=== PATIENT | male | born 1950 | race Caucasian/White ===

== ENCOUNTER → 2017-03-24 | Outpatient (CLI) | payer MEDICARE, BC | END | disposition home or self-care (01) | LOC: PCVCCLINIC 16:48 | PROVIDERS: ATTEND Internal Medicine Cardiovascular Disease | DX: I10 Essential (primary) hypertension (principal); E78.4 Other hyperlipidemia; I73.9 Peripheral vascular disease, unspecified; F17.200 Nicotine dependence, unspecified, uncomplicated; Z86.79 Personal history of other diseases of the circulatory system; Z85.46 Personal history of malignant neoplasm of prostate; Z79.82 Long term (current) use of aspirin | CPT/HCPCS: 80061; 93005; G0463 ==

== ENCOUNTER → 2017-04-24 | Outpatient (CLI) | payer MEDICARE, BC | END | disposition home or self-care (01) | LOC: PCVCCLINIC 10:56 | PROVIDERS: ATTEND Internal Medicine Cardiovascular Disease | DX: E78.2 Mixed hyperlipidemia (principal) | CPT/HCPCS: 80061 ==

== ENCOUNTER → 2017-04-24 | Outpatient (CLI) | payer MEDICARE, BC ==
[~2017-04-24] MED LIST: REGADENOSON 0.4 MG/5 ML DISP.SYRIN. IV ONE
--- NOTE | 2017-04-24 10:01 | PCVCIMAG ---
EXAM: AORTOILIAC DUPLEX INDICATION: Peripheral arterial disease. FINDINGS: AORTA: Suprarenal aorta measures maximum diameter of 2.9 cm. There is not a fusiform infrarenal aortic aneurysm. The infrarenal aorta measures maximum diameter of 2.5 cm. No aortic stenosis. RIGHT COMMON ILIAC ARTERY: Maximum diameter is 1.0 cm. No significant stenosis. RIGHT EXTERNAL ILIAC ARTERY: No significant stenosis. LEFT COMMON ILIAC ARTERY: Maximum diameter is 1.0 cm. No significant stenosis. LEFT EXTERNAL ILIAC ARTERY: No significant stenosis. IMPRESSION: No abdominal aortic aneurysm. No aortoiliac stenosis seen. Previous bilateral iliac artery stents maintaining satisfactory patency. LOC:[id number]
--- NOTE | 2017-04-27 18:33 | PCVCIMAG ---
APPROVED REPORT Exam: Nuclear Stress Test Indication: Pre-Operative CV evaluation, Dyspnea, Dizziness Patient Location: Out-Patient Stress Nurse: Misti Garcia RN, Carole Pereira RN [place] Tech:Cathy KEVIN [place] Ht: 6 ft 1 in Wt: 200 lbs BSA: 2.15 m2 HR: 73 bpm BP: 112/66 mmHg BMI: 26.3 Rhythm: NSR, First degree AV Block, RBBB Medical History Medical History: Atrial Fibrillation, HTN, Hyperlipidemia, PAD, RBBB, Age, Smoking E-Cig Medications: Aspirin, Flecainide, Ramipril, Spiriva, Atorvastatin Allergies: Celebrex Pretest Chest Pain Characteristics: No chest pain Physical Disabilities: Knees NM EXAM: Myocardial Perfusion REST/STRESS Imaging Protocol: Rest Tc-99m/Stress Tc-99m 1 day Resting Data Rest SPECT myocardial perfusion imaging was performed in supine position 45 minutes following the intravenous injection of 10.8 mCi of Tc-99m Sestamibi. Time of rest injection: 0850 Date: 04/24/2017 Pharmacologic Stress Pharmacologic stress test was performed by injecting Regadenoson 0.4 mg IV push followed by the intravenous injection of 33.5 mCi of Tc-99m Sestamibi. Time of stress injection: 1005 Date: 04/24/2017 Heart Rate at time of stress injection: 74 bpm. Gated Stress SPECT was performed 45 minutes after stress injection. The images were gated to evaluate regional wall motion and calculate left ventricular ejection fraction. Study Quality Study: Good Study Data Post stress, the left ventricular ejection was 68%.. SSS: 4 SRS: 14 SDS: 0 TID = 0.93. Perfusion No evidence of stress induced ischemia or prior myocardial infarction. Wall Motion Normal left ventricular size and function with no regional wall motion abnormalities. Nuclear Conclusion No evidence of stress induced ischemia or prior myocardial infarction. Normal left ventricular size and function with no regional wall motion abnormalities. Post stress, the left ventricular ejection was 68%.. No change since prior study dated May 2015. Interpreted by: Wing Rose MD Electronically Approved: 04/24/2017 13:34:46 Stress Test Details Stress Test: Pharmacologic stress was paired with low level exercise. HR Resting HR: 71 bpmMax Heart Rate (APMHR): 154 bpm Max HR Achieved: 87 bpmTarget HR (85% APMHR): 130 bpm % of APMHR: 56 Recovery HR: 67 bpm BP Resting BP: 112/66 mmHg Max BP: 100/66 mmHg Recovery BP: 118/65 mmHg ECG Resting ECG: Sinus Rhythm, 1st degree AV block Stress ECG: Unchanged Arrhythmia: None Recovery ECG: Sinus Rhythm, normal EKG Recovery ST Change: None Clinical Reason for Termination: Completed protocol Stress Symptoms: Leg Fatigue, resolved during recovery. Exercise duration: 4 min 00 sec Exercise capacity: 1.6 METs Symptoms resolved during recovery. Nurse Comments IV DC'd
== END | disposition home or self-care (01) ==
LOC: PCVCIMAG 08:16
PROVIDERS: ATTEND Internal Medicine Cardiovascular Disease
DX: I73.9 Peripheral vascular disease, unspecified (principal); E78.2 Mixed hyperlipidemia; I10 Essential (primary) hypertension; Z95.5 Presence of coronary angioplasty implant and graft
CPT/HCPCS: 78452; 80061; 93017; 93978; A9500; J2785

== ENCOUNTER → 2017-09-23 | Outpatient (CLI) | payer MEDICARE, BC | END | disposition home or self-care (01) | LOC: PCVCCLINIC 16:09 | PROVIDERS: ATTEND Internal Medicine Cardiovascular Disease | DX: I48.91 Unspecified atrial fibrillation (principal); I10 Essential (primary) hypertension; I73.9 Peripheral vascular disease, unspecified; E78.2 Mixed hyperlipidemia; I51.7 Cardiomegaly; J44.9 Chronic obstructive pulmonary disease, unspecified; F17.210 Nicotine dependence, cigarettes, uncomplicated; R94.31 Abnormal electrocardiogram [ECG] [EKG]; I44.0 Atrioventricular block, first degree; Z79.82 Long term (current) use of aspirin; Z79.899 Other long term (current) drug therapy | CPT/HCPCS: 80061; 93005; G0463 ==

== ENCOUNTER → 2018-07-30 | Outpatient (CLI) | payer MEDICARE, BC ==
--- NOTE | 2018-07-30 13:22 | PCVCIMAG ---
APPROVED REPORT Study performed: 07/30/2018 12:07:18 EXAM: Comprehensive 2D, Doppler, and color-flow Echocardiogram Patient Location: Echo lab Status: routine BSA: 2.50 HR: 56 bpmBP: 110/72 mmHg Rhythm: NSR Other Information Study Quality: Adequate Risk Factors: Cardiac Risk Factors: HTN, Hyperlipidemia Indications Atrial Fibrillation 2D Dimensions IVSd: 12.37 (7-11mm)LVOT Diam: 21.00 (18-24mm) LVDd: 55.86 mm LVPWs: 36.45 mm PWd: 13.23 (7-11mm)Ascending Ao: 38.06 (22-36mm) LVDs: 35.62 (25-40mm) Left Atrium: 41.67 (27-40mm) Aortic Root: 39.96 mm LV Single Plane 4CH: 61.76 % LV Single Plane 2CH: 55.44 % Biplane EF: 56.8 % Volumes Left Atrial Volume (Systole) Single Plane 4CH: 59.29 mLSingle Plane 2CH: 47.52 mL LA ESV Index: 24.00 mL/m2 Aortic Valve AoV Peak Brenedn.: 1.27 m/s AO Peak Gr.: 6.45 mmHgLVOT Max P.92 mmHg LVOT Max V: 0.99 m/s LETTY Vmax: 2.70 cm2 Mitral Valve E/A Ratio: 2.1 MV Decel. Time: 306.81 ms MV E Max Brenden.: 0.71 m/s MV A Brenden.: 0.34 m/s IVRT: 69.20 ms TDI E/Lateral E': 7.10E/Medial E': 7.89 Medial E' Brenden.: 0.09 m/s Lateral E' Brenden.: 0.10 m/s Pulmonary Valve PV Peak Brenden.: 0.94 m/sPV Peak Gr.: 3.51 mmHg Pulmonary Vein P Vein S: 0.20 m/sP Vein A: 0.22 m/s P Vein D: 0.72 m/sP Vein A Dur.: 93.4 msec P Vein S/D Ratio: 0.28 Tricuspid Valve TR Peak Brenden.: 1.76 m/sRAP Estimate: 7.00 mmHg TR Peak Gr.: 12.40 mmHg PA Pressure: 19.00 mmHg Left Ventricle The left ventricle is normal size. There is normal LV segmental wall motion. Mild concentric left ventricular hypertrophy. Left ventricular systolic function is normal. The left ventricular ejection fraction is within the normal range. LVEF is 55-60%. The left ventricular diastolic function is normal. Right Ventricle The right ventricle is normal size. The right ventricular systolic function is normal. Atria The left atrium size is normal. The right atrium size is normal. Aortic Valve The aortic valve is normal in structure. No aortic regurgitation is present. There is no aortic valvular stenosis. Mitral Valve The mitral valve is normal in structure. Trace mitral regurgitation. No evidence of mitral valve stenosis. Tricuspid Valve The tricuspid valve is normal in structure. Trace tricuspid regurgitation. Pulmonary artery pressure is 19 mmHg. Pulmonic Valve The pulmonary valve is normal in structure. Trace pulmonic regurgitation. Great Vessels The aortic root is normal in size. IVC is normal in size and collapses >50% with inspiration. Pericardium There is no pericardial effusion. <Conclusion> The left ventricle is normal size. Mild concentric left ventricular hypertrophy. LVEF is 55-60%. The left ventricular diastolic function is normal. The right ventricle is normal size. The left atrium size is normal. The right atrium size is normal. The aortic valve is normal in structure. Trace mitral regurgitation. Trace tricuspid regurgitation. Pulmonary artery pressure is 19 mmHg. The aortic root is normal in size. There is no pericardial effusion.
== END | disposition home or self-care (01) ==
LOC: PCVCIMAG 12:33
PROVIDERS: ATTEND Internal Medicine Cardiovascular Disease
DX: I51.7 Cardiomegaly (principal); E78.5 Hyperlipidemia, unspecified; I10 Essential (primary) hypertension; I48.0 Paroxysmal atrial fibrillation; I73.9 Peripheral vascular disease, unspecified; E78.00 Pure hypercholesterolemia, unspecified; F17.200 Nicotine dependence, unspecified, uncomplicated; R94.31 Abnormal electrocardiogram [ECG] [EKG]; Z88.8 Allergy status to other drugs, medicaments and biological substances; Z79.82 Long term (current) use of aspirin; Z79.899 Other long term (current) drug therapy
CPT/HCPCS: 93005; 93306; G0463

== ENCOUNTER → 2018-10-19 | Outpatient (CLI) | payer MEDICARE, BC | END | disposition home or self-care (01) | LOC: PCVCCLINIC 15:53 | PROVIDERS: ATTEND Internal Medicine Cardiovascular Disease | DX: I48.0 Paroxysmal atrial fibrillation (principal); I51.9 Heart disease, unspecified; I73.9 Peripheral vascular disease, unspecified; I10 Essential (primary) hypertension; E78.2 Mixed hyperlipidemia; J44.9 Chronic obstructive pulmonary disease, unspecified; F17.210 Nicotine dependence, cigarettes, uncomplicated | CPT/HCPCS: 36415; 80061; 93005; G0463 ==

== ENCOUNTER → 2019-06-15 | Outpatient (CLI) | payer MEDICARE, BC | END | disposition home or self-care (01) | LOC: PCVCCLINIC 15:00 | PROVIDERS: ATTEND Internal Medicine Cardiovascular Disease | DX: I48.0 Paroxysmal atrial fibrillation (principal); E78.00 Pure hypercholesterolemia, unspecified; R00.1 Bradycardia, unspecified; I11.9 Hypertensive heart disease without heart failure; I44.0 Atrioventricular block, first degree; J44.9 Chronic obstructive pulmonary disease, unspecified; I73.9 Peripheral vascular disease, unspecified; R94.31 Abnormal electrocardiogram [ECG] [EKG]; Z88.6 Allergy status to analgesic agent; Z88.8 Allergy status to other drugs, medicaments and biological substances | CPT/HCPCS: 36415; 80061; 93005; G0463 ==

== ENCOUNTER → 2019-08-17 | Outpatient (CLI) | payer MEDICARE, BC ==
--- NOTE | 2019-08-19 16:34 | PCVCIMAG ---
APPROVED REPORT Imaging Protocol: Rest Tc-99m/Stress Tc-99m 1 day Study performed: 08/17/2019 13:58:17 Indication: P-Atrial Fibrillation, Abnormal EKG Patient Location: Out-Patient Stress Nurse: Carole Pereira RN, Misti Garcia RN [place] Tech:Cathy Welchismael [facility] Ht: 6 ft 4 in Wt: 265 lbs BSA: 2.50 m2 HR: 64 bpm BP: 116/72 mmHg BMI: 32.2 Rhythm: Sinus Rhythm, septal infarct Medical History Medical History: Hyperlipidemia, HTN, COPD, CAD, PVD, Current Smoker Medications: Atorvastatin, Flecanide, Metoprolol, Altace Allergies: Many - none relevant to this exam Cardiac Risk Factors: Age Pretest Chest Pain Characteristics: No chest pain Exercise History: Indeterminate Meds Held (24 hrs): Metoprolol Resting Data Rest SPECT myocardial perfusion imaging was performed in supine position 45 minutes following the intravenous injection of 10.5 mCi of Tc-99m Sestamibi. Time of rest injection: 1315 Date: 08/17/2019 Administration Route: IV Administration Site: Right AC Pharmacologic Stress Pharmacologic stress test was performed by injecting Regadenoson 0.4 mg IV push over 10-15 seconds immediately followed by the intravenous injection of 35.2 mCi of Tc-99m Sestamibi. Time of stress injection: 1430 Date: 08/17/2019 Administration Route: IV Administration Site: Right AC Gated Stress SPECT was performed 45 minutes after stress injection. The images were gated to evaluate regional wall motion and calculate left ventricular ejection fraction. Stress Test Details Stress Test: Pharmacologic stress testing performed using 0.4 mg of regadenoson per 5 mL given IV over 10 seconds. Reason for pharmacologic stress test: physical limitation, knee issues. HRMax Heart Rate (APMHR): 151 bpm Resting HR: 64 bpmTarget HR (85% APMHR): 128 bpm Max HR Achieved: 84 bpm % of APMHR: 55 Recovery HR: 68 bpm BP Resting BP: 116/72 mmHg Max BP: 125/71 mmHg Recovery BP: 122/64 mmHg ECG Resting ECG: Sinus Rhythm, septal infarct Stress ECG: Sinus Rhythm, septal infarct Recovery ECG: Sinus Rhythm, septal infarct Clinical Reason for Termination: Completed protocol Stress Symptoms: Dizziness Symptoms resolved during recovery. Stress ECG Conclusion ECG: Non-ischemic Study Quality Study: Good Study Data Post stress, the left ventricular ejection was 58%.. SSS: 6 SRS: 7 SDS: 1 TID = 1.16. Perfusion Small sized area of mild reversible ischemia involving the inferior left ventricle consistent with a right coronary artery distribution. Wall Motion Normal left ventricular size and function with no regional wall motion abnormalities. Nuclear Conclusion Small sized area of mild reversible ischemia involving the inferior left ventricle consistent with a right coronary artery distribution has developed since April 2017. Post stress, the left ventricular ejection was 58%. Interpreted by: Wing Rose MD Electronically Approved: 08/17/2019 16:38:24 <Conclusion> ECG: Non-ischemic
== END | disposition home or self-care (01) ==
LOC: PCVCIMAG 12:45
PROVIDERS: ATTEND Internal Medicine Cardiovascular Disease
DX: I48.0 Paroxysmal atrial fibrillation (principal); I51.9 Heart disease, unspecified; R00.1 Bradycardia, unspecified; R94.31 Abnormal electrocardiogram [ECG] [EKG]; I44.0 Atrioventricular block, first degree; F17.200 Nicotine dependence, unspecified, uncomplicated; Z88.8 Allergy status to other drugs, medicaments and biological substances
CPT/HCPCS: 78452; 93017; A9500; J2785

== ENCOUNTER → 2019-08-30 | Outpatient (CLI) | payer MEDICARE, BC | END | disposition home or self-care (01) | LOC: PCVCCLINIC 15:30 | PROVIDERS: ATTEND Internal Medicine Cardiovascular Disease | DX: I48.0 Paroxysmal atrial fibrillation (principal); E78.2 Mixed hyperlipidemia; I73.9 Peripheral vascular disease, unspecified; J44.9 Chronic obstructive pulmonary disease, unspecified; I10 Essential (primary) hypertension; R94.31 Abnormal electrocardiogram [ECG] [EKG]; F17.210 Nicotine dependence, cigarettes, uncomplicated; Z79.899 Other long term (current) drug therapy; Z88.8 Allergy status to other drugs, medicaments and biological substances | CPT/HCPCS: 93005; G0463 ==